=== PATIENT | male | born 1990 | race Caucasian/White ===

== ENCOUNTER 2016-10-31 11:16 | Emergency (ER) | payer OTHER ==
[2016-10-31 12:02] LABS: EOSINOPHIL 2.7 % (0-5); HCT 44.1 % (42.0-52.0); HGB 15.6 g/dl (13.2-18.0); LYMPHOCYTE 20.6 % (15-48); MCH 31.3 pg (25.0-31.0); MCHC 35.4 g/dL (32.0-36.0); MCV 88.4 fL (78.0-100.0); MONOCYTE 13.5 % (0-12); MPV 8.9 fL (6.0-9.5); NEUTROPHIL 62.2 % (41-80); PLT 310 K/uL (150-400); RBC 4.99 M/uL (4.70-6.00)
[2016-10-31 12:03] LABS: WBC 10.5 K/uL (4.0-10.5)
[2016-10-31 12:20] LABS: CREATININE 0.9 mg/dL (0.7-1.2); POTASSIUM 4.3 mmol/L (3.5-5.1)
== END 2016-10-31 13:48 | disposition home or self-care (01) ==
LOC: FER 11:16
PROVIDERS: Internal Medicine
DX: H60.91 Unspecified otitis externa, right ear (principal); H93.19 Tinnitus, unspecified ear
CPT/HCPCS: 36415; 80048; 85025; 87804; 87899; J2405